=== PATIENT | female | born 2000 | race Asian ===

== ENCOUNTER → 2025-01-31 | Outpatient (REF) | payer OTHER ==
[2025-01-31 15:17] LABS: APPEARANCE, URINE CLEAR (CLEAR); BACTERIA, URINE AUTO NEGATIVE (NEGATIVE); BILIRUBIN, URINE AUTO NEGATIVE (NEGATIVE); BLOOD, URINE BLOOD 3+ (NEGATIVE); COLOR, URINE YELLOW (YELLOW); GLUCOSE, URINE (UA) AUTO NEGATIVE (NEGATIVE); KETONE, URINE AUTO NEGATIVE (NEGATIVE); LEUKOCYTE ESTERASE, URINE AUTO 2+ (NEGATIVE); NITRITE, URINE AUTO NEGATIVE (NEGATIVE); PROTEIN, URINE AUTO 1+ mg/dL (NEGATIVE); RBC, URINE AUTO 25 /HPF (0-3); SPECIFIC GRAVITY URINE AUTO 1.008 (1.002-1.035); SQUAMOUS EPITHELIAL CELL UR AU 2 /HPF (0-6); UROBILINOGEN, URINE AUTO 0.2 mg/dL (0.0-2.0); WBC, URINE AUTO 22 /HPF (0-3)
== END ==
LOC: M LAB REF 14:53
PROVIDERS: ATTEND Physician Assistant Medical
DX: N39.0 Urinary tract infection, site not specified (principal)

== ENCOUNTER 2025-04-21 14:38 | Emergency (ER) | payer OTHER ==
[~2025-04-21] VITALS: Ht 147.3 cm; Wt 55.5 kg
[2025-04-21 16:28] LABS: APPEARANCE, URINE CLEAR (CLEAR); BACTERIA, URINE AUTO NEGATIVE (NEGATIVE); BILIRUBIN, URINE AUTO NEGATIVE (NEGATIVE); BLOOD, URINE BLOOD 2+ (NEGATIVE); GLUCOSE, URINE (UA) AUTO NEGATIVE (NEGATIVE); KETONE, URINE AUTO NEGATIVE (NEGATIVE); LEUKOCYTE ESTERASE, URINE AUTO NEGATIVE (NEGATIVE); NITRITE, URINE AUTO NEGATIVE (NEGATIVE); PROTEIN, URINE AUTO NEGATIVE (NEGATIVE); RBC, URINE AUTO 0 /HPF (0-3); SPECIFIC GRAVITY URINE AUTO 1.006 (1.002-1.035); SQUAMOUS EPITHELIAL CELL UR AU 0 /HPF (0-6); UROBILINOGEN, URINE AUTO 0.2 mg/dL (0.0-2.0); WBC, URINE AUTO 1 /HPF (0-3)
[2025-04-21 18:15] VITALS: BP 98/60; O2SAT 99
[2025-04-21 18:24] VITALS: TEMP 97.4
== END 2025-04-21 18:33 | disposition home or self-care (01) ==
LOC: M ED 14:38
DX: O03.9 Complete or unspecified spontaneous abortion without complication (principal)

== ENCOUNTER → 2025-05-26 | Outpatient (CLI) | payer OTHER | LOC: M WHC 08:19 | PROVIDERS: ATTEND Advanced Practice Midwife | DX: O03.9 Complete or unspecified spontaneous abortion without complication (principal); N88.8 Other specified noninflammatory disorders of cervix uteri ==

== ENCOUNTER 2025-10-18 11:00 | Day surgery (SDC) | payer OTHER ==
[~2025-10-18] VITALS: Ht 124.5 cm; Wt 57.0 kg
[2025-10-18] MEDS ORDERED: MIDAZOLAM INJ 2 MG/2 ML VIAL As Ordered ONE (12:21)
[2025-10-18] MEDS ORDERED: ONDANSETRON 4MG/2ML VIAL As Ordered ONE (12:21)
[2025-10-18] MEDS ORDERED: dexAMETHasone 4 MG/ML 1 ML VIAL As Ordered ONE (12:21)
[2025-10-18] MEDS ORDERED: LIDOCAINE 2% 100 MG/5 ML SDV (FOR ANES.) As Ordered ONE (12:21)
[2025-10-18 12:30] LABS: PLATELET COUNT, AUTOMATED 339 10^3/uL (150-450)
[2025-10-18] MEDS ORDERED: DOXYCYCLINE HYCLATE 100 MG in DEXTROSE 5% (D5W) MINI-BAG PLU 100 ML IV SCH (12:30)
[2025-10-18] MEDS ORDERED: ROCURONIUM BROMIDE 50MG/5ML VIAL As Ordered ONE (12:47)
[2025-10-18] MEDS: DOXYCYCLINE HYCLATE 100 MG TABLET PO ONE (12:47)
[2025-10-18] MEDS ORDERED: SUGAMMADEX SODIUM 500 MG/5 ML VIAL As Ordered ONE (12:47)
[2025-10-18] MEDS: SILVER NITRATE APPLICATOR (1 = QTY 10) As Ordered ONE (13:35)
[2025-10-18] MEDS: METHYLERGONOVINE MALEATE 0.2 MG/ML 1 ML VIAL As Ordered ONE (13:36)
[2025-10-18] MEDS ORDERED: MORPHINE 2 MG/ML 1 ML VIAL IV PRN (14:20)
[2025-10-18] MEDS ORDERED: HYDROMORPHONE HCL 0.5 MG/0.5 ML SYRINGE IV PRN (14:20)
[2025-10-18] MEDS: KETOROLAC 30 MG/ML 1 ML VIAL IV ONE (14:37)
[2025-10-18] MEDS: ONDANSETRON 4MG/2ML VIAL IV PRN (14:50)
[2025-10-18 15:03] VITALS: TEMP 97.6
[2025-10-18 15:30] VITALS: BP 112/67; O2SAT 100
== END 2025-10-18 15:45 | disposition home or self-care (01) ==
LOC: M SDC 11:00
PROVIDERS: ATTEND Student in an Organized Health Care Education/Training Program
DX: O02.1 Missed abortion (principal)
CPT/HCPCS: 36415; 59820; 76857; 81229; 85027; 86850; 86900; 86901; 88262; 88305; J1100; J1885; J2210; J2250; J2405; J3010